=== PATIENT | male | born 1985 | race Caucasian/White ===

== ENCOUNTER 2016-09-11 14:26 | Outpatient (RCR) | payer MEDICARE, MEDICAID ==
--- OUTSIDE RECORDS SUMMARY | 2016-09-11 14:30 | XMS REPORT | Continuity of Care Document ---
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 Medications No medication information available. Social History Social History Problem Response Recorded Date/Time Recent Foreign Travel No 03/10/2016 2:29pm Hospital Discharge Instructions No hospital discharge instructions. Plan of Care Prescriptions See Medication Section Functional Status No functional status results. Allergies, Adverse Reactions, Alerts Allergen Type Severity Reaction Status Last Updated No Known Allergies Allergy Unknown Active 02/07/08 Immunizations No immunization records. Vital Signs No known vital signs results. Results Laboratory Results Test Name Result Units Flags Reference Collection Date/Time Result Date/ Time Comments White Blood Count 10.5 10^3/uL 4.3-11.0 03/10/2016 2:58pm 03/10/2016 3: 03pm Red Blood Count 4.72 10^6/uL 4.35-5.85 03/10/2016 2:58pm 03/10/2016 3: 03pm Hemoglobin 13.8 G/DL 13.3-17.7 03/10/2016 2:58pm 03/10/2016 3:03pm Hematocrit 37 % L 40-54 03/10/2016 2:58pm 03/10/2016 3:03pm Mean Corpuscular Volume 79 FL L 80-99 03/10/2016 2:58pm 03/10/2016 3: 03pm Mean Corpuscular Hemoglobin 29 PG 25-34 03/10/2016 2:58pm 03/10/2016 3: 03pm Mean Corpuscular Hemoglobin Concent 37 G/DL H 32-36 03/10/2016 2:58pm 05/2016 3:03pm Red Cell Distribution Width 14.2 % 10.0-14.5 03/10/2016 2:58pm 2015 3:03pm Platelet Count 533 10^3/uL H 130-400 03/10/2016 2:58pm 03/10/2016 3:03pm Mean Platelet Volume 8.9 FL 7.4-10.4 03/10/2016 2:58pm 03/10/2016 3: 03pm Neutrophils (%) (Auto) 78 % H 42-75 03/10/2016 2:58pm 03/10/2016 3:03pm Lymphocytes (%) (Auto) 10 % L 12-44 03/10/2016 2:58pm 03/10/2016 3:03pm Monocytes (%) (Auto) 11 % 0-12 03/10/2016 2:58pm 03/10/2016 3:03pm Eosinophils (%) (Auto) 1 % 0-10 03/10/2016 2:58pm 03/10/2016 3:03pm Basophils (%) (Auto) 1 % 0-10 03/10/2016 2:58pm 03/10/2016 3:03pm Neutrophils # (Auto) 8.2 X 10^3 H 1.8-7.8 03/10/2016 2:58pm 03/10/2016 3: 03pm Lymphocytes # (Auto) 1.1 X 10^3 1.0-4.0 03/10/2016 2:58pm 03/10/2016 3: 03pm Monocytes # (Auto) 1.1 X 10^3 H 0.0-1.0 03/10/2016 2:58pm 03/10/2016 3: 03pm Eosinophils # (Auto) 0.1 10^3/uL 0.0-0.3 03/10/2016 2:58pm 03/10/2016 3 :03pm Basophils # (Auto) 0.1 10^3/uL 0.0-0.1 03/10/2016 2:58pm 03/10/2016 3: 03pm Absolute Reticulocyte Count 49 10e9/L 24-90 03/10/2016 2:58pm 2015 4:10pm Percent Reticulocyte Count 1.04 % 0.50-2.40 03/10/2016 2:58pm 2015 4:10pm Sodium Level 137 MMOL/L 135-145 03/10/2016 2:58pm 03/10/2016 3:34pm Potassium Level 4.1 MMOL/L 3.6-5.0 03/10/2016 2:58pm 03/10/2016 3:34pm Chloride Level 103 MMOL/L 98-107 03/10/2016 2:58pm 03/10/2016 3:34pm Carbon Dioxide Level 26 MMOL/L 21-32 03/10/2016 2:58pm 03/10/2016 3: 34pm Anion Gap 8 MMOL/L 5-14 03/10/2016 2:58pm 03/10/2016 3:34pm Blood Urea Nitrogen 13 MG/DL 7-18 03/10/2016 2:58pm 03/10/2016 3:34pm Creatinine 0.69 MG/DL 0.60-1.30 03/10/2016 2:58pm 03/10/2016 3:34pm BUN/Creatinine Ratio 19 03/10/2016 2:58pm 03/10/2016 3:34pm Estimat Glomerular Filtration Rate > 60 03/10/2016 2:58pm 2015 3:34pm GFR INTERPRETIVE DATA UNITS FOR ESTIMATED GFR (eGFR): mL/min/1.73 M2 REFERENCE RANGE FOR ESTIMATED GFR (eGFR) eGFR NORMAL eGFR >60 MODERATELY DECREASED eGFR 30-59 SEVERLY DECREASED eGFR 15-29 KIDNEY FAILURE <15 (OR DIALYSIS) Glucose Level 88 MG/DL 70-105 03/10/2016 2:58pm 03/10/2016 3:34pm Calcium Level 9.3 MG/DL 8.5-10.1 03/10/2016 2:58pm 03/10/2016 3:34pm Total Bilirubin 0.8 MG/DL 0.1-1.0 03/10/2016 2:58pm 03/10/2016 3:34pm Alkaline Phosphatase 51 U/L 40-136 03/10/2016 2:58pm 03/10/2016 3:34pm Aspartate Amino Transf (AST/SGOT) 21 U/L 5-34 03/10/2016 2:58pm 2015 3:34pm Alanine Aminotransferase (ALT/SGPT) 20 U/L 0-55 03/10/2016 2:58pm 03/10 3:34pm Total Protein 6.7 G/DL 6.4-8.2 03/10/2016 2:58pm 03/10/2016 3:34pm Albumin 4.2 G/DL 3.2-4.5 03/10/2016 2:58pm 03/10/2016 3:34pm Procedures No known history of procedures. Encounters Encounter Location Arrival/Admit Date Discharge/Depart Date Attending Provider Discharged Rec[facility]ring [facility] 03/10/16 2:34pm 11:59pm MATT RUSHING
[2016-09-11 14:39] LABS: BASOPHILS # (AUTO) 0.1 10^3/uL (0.0-0.1); BASOPHILS % (AUTO) 1 % (0-10); EOSINOPHILS # (AUTO) 0.2 10^3/uL (0.0-0.3); EOSINOPHILS % (AUTO) 2 % (0-10); LYMPHOCYTES # (AUTO) 2.1 X 10^3 (1.0-4.0); LYMPHOCYTES % (AUTO) 21 % (12-44); MEAN CORPUSCULAR HEMOGLOBIN 30 PG (25-34); MEAN CORPUSCULAR HGB CONC 37 G/DL (32-36); MEAN CORPUSCULAR VOLUME 79 FL (80-99); MEAN PLATELET VOLUME 9.1 FL (7.4-10.4); MONOCYTES % (AUTO) 10 % (0-12); NEUTROPHILS # (AUTO) 6.9 X 10^3 (1.8-7.8); NEUTROPHILS % (AUTO) 67 % (42-75); PLATELET COUNT 540 10^3/uL (130-400); RED BLOOD COUNT 5.16 10^6/uL (4.35-5.85); RED CELL DISTRIBUTION WIDTH 14.7 % (10.0-14.5); WHITE BLOOD COUNT 10.4 10^3/uL (4.3-11.0)
[2016-09-11 15:36] LABS: ALANINE AMINOTRANSFERASE 12 U/L (0-55); ALBUMIN 4.4 G/DL (3.2-4.5); ANION GAP 10 MMOL/L (5-14); ASPARTATE AMINO TRANSFERASE 17 U/L (5-34); BILIRUBIN,TOTAL 0.6 MG/DL (0.1-1.0); BLOOD UREA NITROGEN 16 MG/DL (7-18); BUN/CREATININE RATIO 22; CALCIUM 9.4 MG/DL (8.5-10.1); CARBON DIOXIDE 25 MMOL/L (21-32); CHLORIDE 105 MMOL/L (98-107); CREATININE SERUM 0.74 MG/DL (0.60-1.30); GFR ESTIMATED > 60; GLUCOSE 90 MG/DL (70-105); POTASSIUM 3.7 MMOL/L (3.6-5.0); SODIUM 140 MMOL/L (135-145); TOTAL PROTEIN 7.3 G/DL (6.4-8.2)
== END 2016-12-10 | disposition home or self-care (01) ==
LOC: ONC 14:26
PROVIDERS: ATTEND Internal Medicine Hematology & Oncology
DX: D68.51 Activated protein C resistance (principal); Z86.718 Personal history of other venous thrombosis and embolism; Z79.01 Long term (current) use of anticoagulants
CPT/HCPCS: 36415; 80053; 82728; 83540; 85025; 99213

== ENCOUNTER 2017-10-13 10:03 | Outpatient (RCR) | payer MEDICAID, MEDICARE ==
[2017-10-13 11:08] LABS: BASOPHILS # (AUTO) 0.1 10^3/uL (0.0-0.1); BASOPHILS % (AUTO) 1 % (0-10); EOSINOPHILS # (AUTO) 0.2 10^3/uL (0.0-0.3); EOSINOPHILS % (AUTO) 3 % (0-10); HEMATOCRIT 40 % (40-54); HEMOGLOBIN 15.1 G/DL (13.3-17.7); LYMPHOCYTES # (AUTO) 1.6 X 10^3 (1.0-4.0); LYMPHOCYTES % (AUTO) 26 % (12-44); MEAN CORPUSCULAR HEMOGLOBIN 30 PG (25-34); MEAN CORPUSCULAR HGB CONC 38 G/DL (32-36); MEAN CORPUSCULAR VOLUME 80 FL (80-99); MEAN PLATELET VOLUME 9.8 FL (7.4-10.4); MONOCYTES # (AUTO) 0.8 X 10^3 (0.0-1.0); MONOCYTES % (AUTO) 13 % (0-12); NEUTROPHILS # (AUTO) 3.6 X 10^3 (1.8-7.8); NEUTROPHILS % (AUTO) 57 % (42-75); PLATELET COUNT 437 10^3/uL (130-400); RED BLOOD COUNT 5.02 10^6/uL (4.35-5.85); RED CELL DISTRIBUTION WIDTH 14.5 % (10.0-14.5); WHITE BLOOD COUNT 6.4 10^3/uL (4.3-11.0)
[2017-10-13 11:37] LABS: ALANINE AMINOTRANSFERASE 17 U/L (0-55); ALBUMIN 4.3 GM/DL (3.2-4.5); ALKALINE PHOSPHATASE 51 U/L (40-136); BILIRUBIN,TOTAL 0.9 MG/DL (0.1-1.0); BUN/CREATININE RATIO 17; CALCIUM 9.3 MG/DL (8.5-10.1); CARBON DIOXIDE 28 MMOL/L (21-32); CHLORIDE 104 MMOL/L (98-107); CREATININE SERUM 0.71 MG/DL (0.60-1.30); GFR ESTIMATED > 60; GLUCOSE 65 MG/DL (70-105); POTASSIUM 3.7 MMOL/L (3.6-5.0); SODIUM 138 MMOL/L (135-145)
== END 2018-01-11 | disposition home or self-care (01) ==
LOC: ONC 10:03
PROVIDERS: ATTEND Internal Medicine Hematology & Oncology
DX: D68.51 Activated protein C resistance (principal); Z86.718 Personal history of other venous thrombosis and embolism; Z79.01 Long term (current) use of anticoagulants
CPT/HCPCS: 36415; 80053; 85025; 99213

== ENCOUNTER → 2018-06-09 | Outpatient (CLI) | payer MEDICARE ==
--- NOTE | 2018-06-09 09:41 | Diagnostic Imaging Report ---
PROCEDURE: US right lower extremity venous. TECHNIQUE: Multiple real-time grayscale images were obtained over the right lower extremity in various projections. Additional spectral analysis and color Doppler duplex images were also obtained. DATE: June 09, 2018. INDICATION: 32-year-old male, history of right lower extremity deep venous thrombosis. Lower extremity ulcer. COMPARISON: February 09, 2008. FINDINGS: There is incomplete compressibility of the superficial femoral vein and popliteal vein with some blood flow demonstrated within the vessels at these levels. This is compatible with nonocclusive thrombus. The right common femoral vein and deep femoral veins are patent. The right posterior tibial and peroneal veins are patent. IMPRESSION: Nonocclusive thrombus within the right superficial femoral vein and right popliteal vein. Dictated by: Dictated on workstation # [id number]
== END ==
LOC: RAD 08:15
PROVIDERS: ATTEND Nurse Practitioner Primary Care
DX: I82.511 Chronic embolism and thrombosis of right femoral vein (principal); I82.431 Acute embolism and thrombosis of right popliteal vein; L97.329 Non-pressure chronic ulcer of left ankle with unspecified severity; I73.9 Peripheral vascular disease, unspecified

== ENCOUNTER 2018-10-12 09:54 | Outpatient (RCR) | payer MEDICARE ==
[2018-10-12 10:02] LABS: BASOPHILS # (AUTO) 0.1 10^3/uL (0.0-0.1); BASOPHILS % (AUTO) 1 % (0-10); EOSINOPHILS # (AUTO) 0.4 10^3/uL (0.0-0.3); EOSINOPHILS % (AUTO) 4 % (0-10); HEMATOCRIT 42 % (40-54); HEMOGLOBIN 15.6 G/DL (13.3-17.7); LYMPHOCYTES # (AUTO) 2.2 X 10^3 (1.0-4.0); LYMPHOCYTES % (AUTO) 21 % (12-44); MEAN CORPUSCULAR HEMOGLOBIN 30 PG (25-34); MEAN CORPUSCULAR HGB CONC 38 G/DL (32-36); MEAN CORPUSCULAR VOLUME 81 FL (80-99); MEAN PLATELET VOLUME 9.5 FL (7.4-10.4); MONOCYTES # (AUTO) 1.1 X 10^3 (0.0-1.0); MONOCYTES % (AUTO) 10 % (0-12); NEUTROPHILS # (AUTO) 6.7 X 10^3 (1.8-7.8); NEUTROPHILS % (AUTO) 64 % (42-75); PLATELET COUNT 475 10^3/uL (130-400); RED CELL DISTRIBUTION WIDTH 14.9 % (10.0-14.5); WHITE BLOOD COUNT 10.4 10^3/uL (4.3-11.0)
[2018-10-12 10:21] LABS: ALANINE AMINOTRANSFERASE 29 U/L (0-55); ALBUMIN 4.5 GM/DL (3.2-4.5); ALKALINE PHOSPHATASE 50 U/L (40-136); BILIRUBIN,TOTAL 0.8 MG/DL (0.1-1.0); BUN/CREATININE RATIO 16; CALCIUM 9.9 MG/DL (8.5-10.1); CARBON DIOXIDE 25 MMOL/L (21-32); CHLORIDE 104 MMOL/L (98-107); CREATININE SERUM 0.83 MG/DL (0.60-1.30); GFR ESTIMATED > 60; GLUCOSE 119 MG/DL (70-105); POTASSIUM 4.2 MMOL/L (3.6-5.0); SODIUM 139 MMOL/L (135-145); TOTAL PROTEIN 7.3 GM/DL (6.4-8.2)
== END 2019-01-10 | disposition home or self-care (01) ==
LOC: ONC 09:54
PROVIDERS: ATTEND Internal Medicine Hematology & Oncology
DX: D68.51 Activated protein C resistance (principal); Z86.718 Personal history of other venous thrombosis and embolism; Z79.01 Long term (current) use of anticoagulants
CPT/HCPCS: 36415; 80053; 85025; 99213

== ENCOUNTER → 2020-01-16 | Outpatient (CLI) | payer MEDICARE ==
[2020-01-16 13:04] LABS: BASOPHILS # (AUTO) 0.1 10^3/uL (0.0-0.1); BASOPHILS % (AUTO) 0 % (0-10); EOSINOPHILS # (AUTO) 0.3 10^3/uL (0.0-0.3); EOSINOPHILS % (AUTO) 2 % (0-10); HEMATOCRIT 39 % (40-54); HEMOGLOBIN 14.4 G/DL (13.3-17.7); LYMPHOCYTES # (AUTO) 2.4 X 10^3 (1.0-4.0); LYMPHOCYTES % (AUTO) 17 % (12-44); MEAN CORPUSCULAR HEMOGLOBIN 30 PG (25-34); MEAN CORPUSCULAR HGB CONC 37 G/DL (32-36); MEAN CORPUSCULAR VOLUME 80 FL (80-99); MEAN PLATELET VOLUME 9.5 FL (7.4-10.4); MONOCYTES # (AUTO) 0.9 X 10^3 (0.0-1.0); MONOCYTES % (AUTO) 6 % (0-12); NEUTROPHILS # (AUTO) 10.8 X 10^3 (1.8-7.8); NEUTROPHILS % (AUTO) 75 % (42-75); PLATELET COUNT 500 10^3/uL (130-400); RED CELL DISTRIBUTION WIDTH 14.5 % (10.0-14.5); WHITE BLOOD COUNT 14.4 10^3/uL (4.3-11.0)
[2020-01-16 13:14] LABS: ALBUMIN 4.3 GM/DL (3.2-4.5); CHLORIDE 104 MMOL/L (98-107); POTASSIUM 4.2 MMOL/L (3.6-5.0); SODIUM 141 MMOL/L (135-145)
[2020-01-16 13:15] LABS: CALCIUM 9.3 MG/DL (8.5-10.1)
[2020-01-16 13:16] LABS: GLUCOSE 109 MG/DL (70-105); TOTAL PROTEIN 7.2 GM/DL (6.4-8.2)
[2020-01-16 13:17] LABS: CARBON DIOXIDE 24 MMOL/L (21-32)
[2020-01-16 13:18] LABS: BILIRUBIN,TOTAL 0.8 MG/DL (0.1-1.0)
[2020-01-16 13:20] LABS: ALKALINE PHOSPHATASE 53 U/L (40-136); CREATININE SERUM 0.76 MG/DL (0.60-1.30); GFR ESTIMATED > 60
[2020-01-16 13:21] LABS: BUN/CREATININE RATIO 17
[2020-01-16 13:23] LABS: ALANINE AMINOTRANSFERASE 17 U/L (0-55)
== END ==
LOC: EDSTATUS 01-11 15:31 → ONC 12:45
PROVIDERS: ATTEND Internal Medicine Hematology & Oncology
DX: D68.51 Activated protein C resistance (principal); I82.501 Chronic embolism and thrombosis of unspecified deep veins of right lower extremity; D72.829 Elevated white blood cell count, unspecified; D47.3 Essential (hemorrhagic) thrombocythemia; Z79.01 Long term (current) use of anticoagulants
CPT/HCPCS: 80053; 85025; G0463; 99213